=== PATIENT | female | born 1995 | race Caucasian/White ===

== ENCOUNTER → 2016-09-18 | Outpatient (REF) | payer BC | LOC: M SFHCWAGY 09:07 | PROVIDERS: ATTEND Family Medicine | DX: Z11.3 Encounter for screening for infections with a predominantly sexual mode of transmission (principal); Z12.4 Encounter for screening for malignant neoplasm of cervix | CPT/HCPCS: 87491; 87591; G0123 ==

== ENCOUNTER → 2018-06-14 | Outpatient (REF) | payer BC | LOC: M LAB REF 06-15 12:41 | DX: R30.0 Dysuria (principal) | CPT/HCPCS: 87086 ==